=== PATIENT | male | born 1990 | race Caucasian/White ===

== ENCOUNTER 2018-09-01 11:24 | Emergency (ER) | payer OTHER ==
--- OUTSIDE RECORDS SUMMARY | 2018-09-01 12:00 | XMS REPORT | Continuity of Care Document ---
:1990 External Reference #:[id number] Author Name Gonzalo Ramirez Care Team Providers Name Role Phone Natalee Davila F.N.P Primary Care Physician Unavailable Payers Date Identification Numbers Payment Provider Subscriber Policy Number: [id number] Umr Rafita Iglesias PayID: [id number] [address] [address] [place] [address] Family History Date Family Member(s) Observation Comments Father Hypertension Mother maternal grandmother-cancer Social History Type Date Description Comments Sex Unknown Marital Status Single Lives With Girlfriend Lives With Roommate Occupation Gear [employer] ETOH Use Currently consumes 4 drinks twice a week alcohol Tobacco Use Start: Unknown Light tobacco smoker (10 or fewer cigarettes/day) Recreational Drug Use Sporadically uses Marijuana Exercise Type/Frequency Exercises regularly lifts weights Allergies, Adverse Reactions, Alerts Description No Known Drug Allergies Medications Active Medications SIG Qnty Indications Ordering Provider Date Bactrim DS 1 by mouth twice 20tabs S81.812A Maykel Arshad MD 08/27/2018 800-160mg a day x 10 days Tablets Ibuprofen one tablet by Unknown 600mg Tablets mouth as needed pain Omeprazole 1 tab by mouth Unknown daily Tums 1 tab by mouth Unknown 500mg Chewtabs four times a day as needed Vital Signs Date Vital Result Comment 08/27/2018 10:25am Heart Rate 73 /min BP Systolic Sitting 118 mmHg BP Diastolic Sitting 82 mmHg Respiratory Rate 16 /min Pain Level 0 O2 % BldC Oximetry 97 % Plan of Treatment Future Appointment(s):09/04/2018 11:00 am - Maykel Arshad MD at [facility] AT [facility]84/20/2019 - Maykel Arshad, MDS81.812A Laceration without foreign body, left lower leg, initial encNew Medication:Bactrim DS 800- 160 mg - 1 by mouth twice a day x 10 daysFollow up:Follow up: 1 week
[2018-09-01 12:07] VITALS: BP 133/77
--- NOTE | 2018-09-01 12:31 | UC ---
HPI Wound/Suture Re-check - HPI Summary HPI Summary: Received stitches one week ago in left lower anterior leg from a broken piece of porcelain. Pt states the laceration was deep to the point of lacerating the muscle and he had drop foot which has improved almost back to normal. He has been wearing a CAM boot for protection. 5 days ago (3 days after he received the sutures) his doctor removed 2 stitches because, according to the pt, the doctor didn't like the way the sutures caused the skin to stretch. The pt was told to recheck it this weekend. He has an appointment with his doctor on Monday for a recheck and suture removal of the remaining 6 sutures. - History Of Current Complaint Chief Complaint: UCLaceration Stated Complaint: LEFT LEG WOUND Time Seen by Provider: 09/01/18 12:04 Hx Obtained From: Patient Onset/Duration: Other - Here for a wound recheck. He received a tetanus on Monday. Severity: Mild Pain Intensity: 0 - Allergies/Home Medications Allergies/Adverse Reactions: Allergies Allergy/AdvReac Type Severity Reaction Status Date / Time No Known Allergies Allergy Verified 09/01/18 12:05 Home Medications: Home Medications Cephalexin CAP* [Keflex CAP*] 500 mg PO TID 09/01/18 [History Confirmed 09/01/18 ] PMH/Surg Hx/FS Hx/Imm Hx Previously Healthy: Yes - Surgical History Surgical History: None - Family History Known Family History: Positive: Unknown Negative: Cardiac Disease, Hypertension, Diabetes - Social History Alcohol Use: Weekly Substance Use Type: None Smoking Status (MU): Light Every Day Tobacco Smoker Type: eCigarettes Amount Used/How Often: vaping Have You Smoked in the Last Year: Yes Household Exposure Type: Cigarettes Review of Systems All Other Systems Reviewed And Are Negative: Yes Skin: Positive: Other - Healing laceration Motor: Positive: Decreased ROM - Pt had drop foot caused by the laceration and wears a CAM boot for protection. The drop foot has improved to almost normal ROM. Neurological: Positive: Negative Is Patient Immunocompromised?: No Physical Exam Triage Information Reviewed: Yes Appearance: Well-Appearing, No Pain Distress, Well-Nourished Vital Signs: Initial Vital Signs Temp 97.2 F 09/01/18 12:01 Pulse 85 09/01/18 12:01 Resp 16 09/01/18 12:01 BP 133/77 09/01/18 12:01 Pulse Ox 100 09/01/18 12:01 Vital Signs Reviewed: Yes Skin: Positive: Other - [address] on anterior left lower leg. Skin avulsionappears clean with no evidence of infection. The laceration is healing. Course/Dx - Course Course Of Treatment: Wound was rewrapped with a bacitracin dressing and Luiz bandage. Area is healing nicely. Pt to keep appt with PCP for suture removal on Monday. - Diagnosis Provider Diagnosis: Encounter for wound re-check Discharge - Sign-Out/Discharge Documenting (check all that apply): Patient Departure All imaging exams completed and their final reports reviewed: No Studies - Discharge Plan Condition: Fair Disposition: HOME Patient Education Materials: Care For Your Stitches (DC) Referrals: Natalee Davila [Primary Care Provider] - Additional Instructions: Keep your appointment with your primary care provider on Monday as scheduled. Change the dressing daily, you may apply a small amount of antibiotic ointment to keep the area moist so it will heal better. - Billing Disposition and Condition Condition: FAIR Disposition: Home - Attestation Statements Provider Attestation: Per institutional requirements, I have reviewed the chart, however, I was not consulted specifically or made aware of this patient by the midlevel provider. I did not personally evaluate, interact with , or disposition this patient.
== END 2018-09-01 12:31 | disposition home or self-care (01) ==
LOC: UCCORT 11:24
DX: S81.812D Laceration without foreign body, left lower leg, subsequent encounter (principal); F17.290 Nicotine dependence, other tobacco product, uncomplicated; X58.XXXD Exposure to other specified factors, subsequent encounter
CPT/HCPCS: 99212; G0463

== ENCOUNTER 2019-02-25 16:18 | Emergency (ER) | payer OTHER | END 2019-02-25 18:08 | disposition left against medical advice (07) | LOC: UCCORT 16:18 | DX: Z53.21 Procedure and treatment not carried out due to patient leaving prior to being seen by health care provider (principal) ==